=== PATIENT | male | born 1990 | race Caucasian/White ===

== ENCOUNTER 2018-08-28 11:02 | Emergency (ER) | payer BC ==
--- NOTE | 2018-08-28 11:14 | EDM.PDOC ---
ED HPI GENERAL MEDICAL PROBLEM - General Stated Complaint: LOWER BACK PAIN Time Seen by Provider: 08/28/18 11:03 Source of Information: Reports: Patient History Limitations: Reports: No Limitations - History of Present Illness INITIAL COMMENTS - FREE TEXT/NARRATIVE: HISTORY AND PHYSICAL: History of present illness: Patient is a 28-year-old male presents to the ED today with concern of right flank pain 2 days. Patient states he has a history of kidney stones and that his symptoms today resemble when he had kidney stones in the past. He rates his pain a 4 out of 10 states that times the pain is worse. He describes the pain currently as dull and achy. Patient has not taken anything [id number] for his symptoms. Patient denies fever, chills, chest pain, shortness of breath, or cough. Denies headache. Denies nausea, vomiting, diarrhea, constipation, or dysuria. Has not noted any blood in urine or stool. Patient expresses a decrease in appetite. Patient denies any other health history other than stated above. Review of systems: As per history of present illness and below otherwise all systems reviewed and negative. Past medical history: As per history of present illness and as reviewed below otherwise noncontributory. Surgical history: As per history of present illness and as reviewed below otherwise noncontributory. Social history: See social history for further information Family history: As per history of present illness and as reviewed below otherwise noncontributory. Physical exam: General: Patient is alert, oriented, and in no acute distress. He sitting comfortably on exam table. HEENT: Atraumatic, normocephalic, pupils equal and reactive bilaterally, negative for conjunctival pallor or scleral icterus, mucous membranes dry, TMs normal bilaterally, throat clear, neck supple, nontender, trachea midline. No drooling or trismus noted. No meningeal signs. No hot potato voice noted. Lungs: Clear to auscultation, breath sounds equal bilaterally, chest nontender. Heart: S1S2, regular rate and rhythm without overt murmur Abdomen: Mild-moderate pain to palpation of the right flank area. Otherwise, soft, nondistended, nontender. Negative for masses or hepatosplenomegaly. Negative for costovertebral tenderness. Pelvis: Stable nontender. Genitourinary: Deferred. Rectal: Deferred. Skin: Intact, warm, dry. No lesions or rashes noted. Extremities/musculoskeletal: Atraumatic, negative for cords or calf pain. Neurovascular unremarkable. Neuro: Awake, alert, oriented. Cranial nerves II through XII unremarkable. Cerebellum unremarkable. Motor and sensory unremarkable throughout. Exam nonfocal. Notes: On exam, patient does have mild to moderate pain to palpation of the right flank area. Will do labs and imaging today. Abd/pelvic CT shows no acute findings in the abdomen or pelvis. Shared these results with patient.Supportive care measures were reviewed and discussed. Voices understanding and is agreeable to plan of care. Denies any further questions or concerns at this time. Diagnostics: cbc, cmp, ua, abd/pelvic ct Therapeutics: Saline, toradol, zofran Prescription: None Impression: Right flank pain, unspecified Plan: 1. You can apply ice and/or heat to affected area 15 minutes on, 15 minutes off. Alternate ibuprofen and Tylenol as directed for pain and discomfort. 2. Follow up with your primary care provider as discussed. 3. Return to the ED as needed and as discussed. Definitive disposition and diagnosis as appropriate pending reevaluation and review of above. Right Flank Pain Score (Numeric/FACES): 5 - Related Data Allergies Allergy/AdvReac Type Severity Reaction Status Date / Time No Known Allergies Allergy Verified 08/28/18 11:21 Home Meds: Home Meds . [No Known Home Meds] 10/13/14 [History] Past Medical History - Past Health History Medical/Surgical History: Denies Medical/Surgical History - Infectious Disease History Infectious Disease History: Reports: Chicken Pox Other Infectious Disease History: childhood Social & Family History - Family History Family Medical History: Noncontributory ED ROS GENERAL - Review of Systems Review Of Systems: ROS reveals no pertinent complaints other than HPI. ED EXAM,LOWER BACK PAIN/INJURY - Physical Exam Exam: See Below (see dictation) Course - Vital Signs Last Recorded V/S: Last Vital Signs Temp 36.6 C 08/28/18 11:18 Pulse 80 08/28/18 11:18 Resp 16 08/28/18 11:18 BP 125/43 L 08/28/18 11:18 Pulse Ox 98 08/28/18 11:18 - Orders/Labs/Meds Labs: Laboratory Tests 08/28/18 08/28/18 08/28/18 Range/Units 11:36 11:45 11:45 WBC 6.38 (4.0-11.0) K/uL RBC 4.88 (4.50-5.90) M/uL Hgb 14.7 (13.0-17.0) g/dL Hct 42.5 (38.0-50.0) % MCV 87.1 (80.0-98.0) fL MCH 30.1 (27.0-32.0) pg MCHC 34.6 (31.0-37.0) g/dL RDW Std Deviation 40.3 (28.0-62.0) fl RDW Coeff of Luis 13 (11.0-15.0) % Plt Count 253 (150-400) K/uL MPV 8.90 (7.40-12.00) fL Neut % (Auto) 46.7 L (48.0-80.0) % Lymph % (Auto) 43.7 H (16.0-40.0) % [place] % (Auto) 7.4 (0.0-15.0) % Eos % (Auto) 1.9 (0.0-7.0) % Baso % (Auto) 0.3 (0.0-1.5) % Neut # (Auto) 3.0 (1.4-5.7) K/uL Lymph # (Auto) 2.8 H (0.6-2.4) K/uL [place] # (Auto) 0.5 (0.0-0.8) K/uL Eos # (Auto) 0.1 (0.0-0.7) K/uL Baso # (Auto) 0.0 (0.0-0.1) K/uL Nucleated RBC % 0.0 /100WBC Nucleated RBCs # 0 K/uL Sodium 140 (136-148) mmol/L Potassium 4.4 (3.5-5.1) mmol/L Chloride 105 (98-107) mmol/L Carbon Dioxide 26.0 (21.0-32.0) mmol/L BUN 14 (7.0-18.0) mg/dL Creatinine 0.9 (0.8-1.3) mg/dL Est Cr Clr Drug Dosing 102.32 mL/min Estimated GFR (MDRD) > 60.0 ml/min Glucose 87 (74-106) mg/dL Calcium 8.8 (8.5-10.1) mg/dL Total Bilirubin 0.3 (0.2-1.0) mg/dL AST 26 (15-37) IU/L ALT 34 (14-63) IU/L Alkaline Phosphatase 62 (46-116) U/L Total Protein 7.9 (6.4-8.2) g/dL Albumin 4.1 (3.4-5.0) g/dL Globulin 3.8 (2.6-4.0) g/dL Albumin/Globulin Ratio 1.1 (0.9-1.6) Urine Color YELLOW Urine Appearance CLEAR Urine pH 7.0 (5.0-8.0) Ur Specific [place] 1.020 (1.001-1.035) Urine Protein NEGATIVE (NEGATIVE) mg/dL Urine Glucose (UA) NEGATIVE (NEGATIVE) mg/dL Urine Ketones NEGATIVE (NEGATIVE) mg/dL Urine Occult Blood NEGATIVE (NEGATIVE) Urine Nitrite NEGATIVE (NEGATIVE) Urine Bilirubin NEGATIVE (NEGATIVE) Urine Urobilinogen 0.2 (<2.0) EU/dL Ur Leukocyte Esterase NEGATIVE (NEGATIVE) Meds: Medications Discontinued Medications Generic Name Dose Route Start Last Admin Trade Name Freq PRN Reason Stop Dose Admin Sodium Chloride 1,000 mls @ 999 mls/hr 08/28/18 11:34 08/28/18 11:46 Normal Saline IV 08/28/18 12:34 999 mls/hr STAT ONE Administration Ketorolac Tromethamine 30 mg 08/28/18 11:34 08/28/18 11:48 Toradol IVPUSH 08/28/18 11:35 30 mg ONETIME ONE Administration Ondansetron HCl 4 mg 08/28/18 11:34 08/28/18 11:47 Zofran IVPUSH 08/28/18 11:35 4 mg ONETIME ONE Administration Departure - Departure Time of Disposition: 12:46 Disposition: Home, Self-Care 01 Clinical Impression: Flank pain - Discharge Information Referrals: PCP,None [Primary Care Provider] - Additional Instructions: The following information is given to patients seen in the emergency department who are being discharged to home. This information is to outline your options for follow-up care. We provide all patients seen in our emergency department with a follow-up referral. The need for follow-up, as well as the timing and circumstances, are variable depending upon the specifics of your emergency department visit. If you don't have a primary care physician on staff, we will provide you with a referral. We always advise you to contact your personal physician following an emergency department visit to inform them of the circumstance of the visit and for follow-up with them and/or the need for any referrals to a consulting specialist. The emergency department will also refer you to a specialist when appropriate. This referral assures that you have the opportunity for follow-up care with a specialist. All of these measure are taken in an effort to provide you with optimal care, which includes your follow-up. Under all circumstances we always encourage you to contact your private physician who remains a resource for coordinating your care. When calling for follow-up care, please make the office aware that this follow-up is from your recent emergency room visit. If for any reason you are refused follow-up, please contact the [facility] Emergency Department at and asked to speak to the emergency department charge nurse. [facility] [address] [place] [id number] [place] [address] 1. You can apply ice and/or heat to affected area 15 minutes on, 15 minutes off. Alternate ibuprofen and Tylenol as directed for pain and discomfort. 2. Follow up with your primary care provider as discussed. 3. Return to the ED as needed and as discussed.
[2018-08-28] MEDS ORDERED: Ondansetron 4 MG/2 ML SDV IVPUSH ONE (11:34)
[2018-08-28] MEDS ORDERED: Sodium Chloride 0.9% 1,000 ML IV ONE (11:34)
[2018-08-28] MEDS ORDERED: Ketorolac 30 MG/ML SDV IVPUSH ONE (11:34)
--- NOTE | 2018-08-28 12:12 | CT ---
CT of the abdomen and pelvis without contrast. HISTORY: Right flank pain TECHNIQUE: Axial CT images were obtained of the abdomen and pelvis without contrast. Coronal and sagittal reconstructions obtained. FINDINGS: The lung bases are clear, no pleural effusion. The liver, spleen, and pancreas appear unremarkable for noncontrast examination. The gallbladder appears normal. Probable tiny right adrenal adenoma. There is no bulky retroperitoneal lymphadenopathy. No abdominal ascites. There are no calcifications noted within the kidneys or along the courses of the ureters bilaterally. Right renal cyst is noted. The large and small bowel are normal in caliber without evidence of obstruction. The appendix appears normal. There is no bulky pelvic lymphadenopathy. No free fluid. No free air. The urinary bladder appears normal. The visualized osseous structures appear normal. IMPRESSION: No acute findings within the abdomen or pelvis.
[2018-08-28 12:41] LABS: CHLORIDE,CL 105 mmol/L (98-107); SODIUM,NA 140 mmol/L (136-148)
[2018-08-28 12:58] VITALS: BP 125/76
== END 2018-08-28 12:58 | disposition home or self-care (01) ==
LOC: MW.ED 11:02
DX: R10.9 Unspecified abdominal pain (principal)
CPT/HCPCS: 36415; 74176; 80053; 81003; 85025; 96361; 96374; 96375; 99284; J1885; J2405; J7040

== ENCOUNTER 2018-11-11 13:44 | Emergency (ER) | payer BC ==
--- NOTE | 2018-11-11 13:54 | EDM.PDOC ---
ED HPI GENERAL MEDICAL PROBLEM - General Chief Complaint: ENT Problem Stated Complaint: EAR AND THROAT PAIN Time Seen by Provider: 11/11/18 13:54 Source of Information: Reports: Patient History Limitations: Reports: No Limitations - History of Present Illness INITIAL COMMENTS - FREE TEXT/NARRATIVE: HISTORY AND PHYSICAL: History of present illness: Patient is a 28-year-old male who presents to the emergency room with complaints of throat pain and left ear pain. He reports that he has been having recurrent tonsillitis and pharyngitis. He reports approximately one month ago he finished antibiotics for strep throat. He does have a referral to the ENT specialist in December with hopes he will have a tonsillectomy. Patient denies any fever, chills, headache, change in vision, syncope or near syncope. Denies any chest pain, back pain, shortness of breath or cough. Denies any GI or symptoms. Patient has been eating and drinking appropriately. Review of systems: As per history of present illness and below otherwise all systems reviewed and negative. Past medical history: As per history of present illness and as reviewed below otherwise noncontributory. Surgical history: As per history of present illness and as reviewed below otherwise noncontributory. Social history: See social history for further information Family history: As per history of present illness and as reviewed below otherwise noncontributory. Physical exam: General: Well-developed and well-nourished 28-year-old male. Alert and oriented. Nontoxic appearing and in no acute distress. HEENT: Atraumatic, normocephalic, pupils equal and reactive bilaterally, negative for conjunctival pallor or scleral icterus, mucous membranes moist, TMs normal bilaterally, throat erythematous with exudate patches bilaterally ( no fullness or pilar shifting), neck supple, mild tenderness with palpation bilaterally, trachea midline. No drooling or trismus noted. No meningeal signs. No hot potato voice noted. Lungs: Clear to auscultation, breath sounds equal bilaterally, chest nontender. Heart: S1S2, regular rate and rhythm without overt murmur Abdomen: Soft, nondistended, nontender. Negative for masses or hepatosplenomegaly. Negative for costovertebral tenderness. Pelvis: Stable nontender. Genitourinary: Deferred. Rectal: Deferred. Skin: Intact, warm, dry. No lesions or rashes noted. Extremities: Atraumatic, moves all extremities per self without difficulty or deficits, negative for cords or calf pain. Neurovascular unremarkable. Neuro: Awake, alert, oriented. Cranial nerves II through XII unremarkable. Cerebellum unremarkable. Motor and sensory unremarkable throughout. Exam nonfocal. Notes: Medications reviewed with the patient. I encouraged him to contact the ENT to inquire about expediting his consultations/appointment. Supportive care measures were reviewed and discussed. Voices understanding and is agreeable to plan of care. Denies any further questions or concerns at this time. Diagnostics: None Therapeutics: None Prescription: Pen VK Phenergan w/ Codeine (4oz) Medrol Dosepak Impression: Pharyngitis Plan: 1. Take your medication as directed. 2. Warm Salt water gargles (rinse and spit) 3-4 x daily. Please get a new tooth brush after completion of your medication 3. Tylenol and or ibuprofen as needed for pain management. 4. Follow-up with the ENT as we discussed. Return to the ED as needed and as discussed. Definitive disposition and diagnosis as appropriate pending reevaluation and review of above. Throat Pain Score (Numeric/FACES): 8 - Related Data Allergies Allergy/AdvReac Type Severity Reaction Status Date / Time No Known Allergies Allergy Verified 11/11/18 13:51 Home Meds: Home Meds . [No Known Home Meds] 10/13/14 [History] Past Medical History - Past Health History Medical/Surgical History: Denies Medical/Surgical History Genitourinary History: Reports: Renal Calculus - Infectious Disease History Infectious Disease History: Reports: Chicken Pox Other Infectious Disease History: childhood - Past Surgical History Male Surgical History: Reports: Kidney Stone Extraction Social & Family History - Family History Family Medical History: Noncontributory - Caffeine Use Caffeine Use: Reports: Coffee ED ROS ENT - Review of Systems Review Of Systems: ROS reveals no pertinent complaints other than HPI. ED EXAM, ENT - Physical Exam Exam: See Below (See dictation) Course - Vital Signs Last Recorded V/S: Last Vital Signs Temp 99.8 F 11/11/18 13:49 Pulse 108 H 11/11/18 13:49 Resp 18 11/11/18 13:49 BP 127/70 11/11/18 13:49 Pulse Ox 94 L 11/11/18 13:49 Departure - Departure Time of Disposition: 14:01 Disposition: Home, Self-Care 01 Clinical Impression: Pharyngitis Qualifiers: Pharyngitis/tonsillitis etiology: unspecified etiology Qualified Code(s): J02.9 - Acute pharyngitis, unspecified - Discharge Information Instructions: Strep Throat, [id number] Referrals: PCP,None [Primary Care Provider] - Forms: ED Department Discharge Additional Instructions: The following information is given to patients seen in the emergency department who are being discharged to home. This information is to outline your options for follow-up care. We provide all patients seen in our emergency department with a follow-up referral. The need for follow-up, as well as the timing and circumstances, are variable depending upon the specifics of your emergency department visit. If you don't have a primary care physician on staff, we will provide you with a referral. We always advise you to contact your personal physician following an emergency department visit to inform them of the circumstance of the visit and for follow-up with them and/or the need for any referrals to a consulting specialist. The emergency department will also refer you to a specialist when appropriate. This referral assures that you have the opportunity for follow-up care with a specialist. All of these measure are taken in an effort to provide you with optimal care, which includes your follow-up. Under all circumstances we always encourage you to contact your private physician who remains a resource for coordinating your care. When calling for follow-up care, please make the office aware that this follow-up is from your recent emergency room visit. If for any reason you are refused follow-up, please contact the [facility] Emergency Department at and asked to speak to the emergency department charge nurse. [facility] [address] [place] [id number] [address] 1. Take your medication as directed. 2. Warm Salt water gargles (rinse and spit) 3-4 x daily. Please get a new tooth brush after completion of your medication 3. Tylenol and or ibuprofen as needed for pain management. Phenergan with codeine for moderate to severe pain. This medication may cause drowsiness so do not take it on driving or needing to be functioning outside of the house. 4. Follow-up with the ENT as we discussed. Return to the ED as needed and as discussed.
[2018-11-11 14:34] VITALS: BP 123/78
== END 2018-11-11 14:15 | disposition home or self-care (01) ==
LOC: MW.ED 13:44
DX: J02.9 Acute pharyngitis, unspecified (principal)
CPT/HCPCS: 99282; 99283

== ENCOUNTER 2018-12-28 16:04 | Emergency (ER) | payer BC ==
--- NOTE | 2018-12-28 16:14 | EDM.PDOC ---
ED HPI GENERAL MEDICAL PROBLEM - General Chief Complaint: ENT Problem Stated Complaint: POSSBILE STREP THROAT Time Seen by Provider: 12/28/18 16:13 Source of Information: Reports: Patient History Limitations: Reports: No Limitations - History of Present Illness INITIAL COMMENTS - FREE TEXT/NARRATIVE: HISTORY AND PHYSICAL: History of present illness: Patient is a 28-year-old male presents to the ED with complaint of sore throat. He states he gets strep throat every 6-8 weeks, he is seeing ENT in [place] to consult for a tonsillectomy at the end of the month. He has had chills and nausea. Denies cough, chest pain, abdominal pain ,vomiting, trismus, difficultly swallowing or breathing. Review of systems: As per history of present illness and below otherwise all systems reviewed and negative. Past medical history: As per history of present illness and as reviewed below otherwise noncontributory. Surgical history: As per history of present illness and as reviewed below otherwise noncontributory. Social history: No reported history of drug or alcohol abuse. Family history: As per history of present illness and as reviewed below otherwise noncontributory. Physical exam: General: Patient sitting comfortably in no acute distress and nontoxic appearing HEENT: Tonsils 1+ without erythema, there is a small patch of exudate on the left tonsil. No anterior cervical LAD. Atraumatic, normocephalic, pupils reactive, negative for conjunctival pallor or scleral icterus, mucous membranes moist, neck supple, nontender, trachea midline. No meningeal signs. Lungs: Clear to auscultation, breath sounds equal bilaterally, chest nontender. Heart: S1S2, regular, negative for clicks, rubs, or overt murmur. Abdomen: Soft, nondistended, nontender. Negative for masses or hepatosplenomegaly. Negative for costovertebral tenderness. No rigidity, rebound , guarding. Pelvis: Stable nontender. Genitourinary: Deferred. Rectal: Deferred. Extremities: Atraumatic, negative for cords or calf pain. Neurovascular unremarkable. Neuro: Awake, alert, oriented. Cranial nerves II through XII unremarkable. Cerebellum unremarkable. Motor and sensory unremarkable throughout. Exam nonfocal. Notes: Diagnostics: rapid strep Therapeutics: none Prescriptions: Penicillin Medrol dosepak Impression: Tonsillitis Plan: Take medication as instructed. Alternate tylenol and motrin as needed for discomfort Follow up with primary care provider Return to ED as needed as discussed Definitive disposition and diagnosis as appropriate pending reevaluation and review of above. - Related Data Allergies Allergy/AdvReac Type Severity Reaction Status Date / Time No Known Allergies Allergy Verified 11/11/18 13:51 Home Meds: Home Meds Ibuprofen 800 mg PO PRN 12/28/18 [History] Penicillin V Potassium 500 mg PO Q8HR #30 tab 12/28/18 [Rx] methylPREDNISolone [Medrol] 4 mg PO ASDIRECTED #1 tab.ds.pk 12/28/18 [Rx] Past Medical History - Past Health History Medical/Surgical History: Denies Medical/Surgical History Genitourinary History: Reports: Renal Calculus - Infectious Disease History Infectious Disease History: Reports: Chicken Pox Other Infectious Disease History: childhood - Past Surgical History Male Surgical History: Reports: Kidney Stone Extraction Social & Family History - Family History Family Medical History: Noncontributory - Caffeine Use Caffeine Use: Reports: Coffee ED ROS ENT - Review of Systems Review Of Systems: ROS reveals no pertinent complaints other than HPI. ED EXAM, ENT - Physical Exam Exam: See Below (see dictation) Course - Vital Signs Last Recorded V/S: Last Vital Signs Temp 100.1 F 12/28/18 16:13 Pulse 101 H 12/28/18 16:13 Resp 18 12/28/18 16:13 BP 122/76 12/28/18 16:13 Pulse Ox 96 12/28/18 16:13 - Orders/Labs/Meds Orders: Active Orders 24 hr Category Date Time Status STREP SCRN A RAPID W CULT CONF [RM] Stat Lab 12/28/18 16:05 Ordered Departure - Departure Time of Disposition: 16:19 Disposition: Home, Self-Care 01 Condition: Good Clinical Impression: Tonsillitis - Discharge Information Prescriptions: Penicillin V Potassium 500 mg PO Q8HR #30 tab methylPREDNISolone [Medrol] 4 mg PO ASDIRECTED #1 tab.ds.pk Referrals: Dre Trujillo MD [Primary Care Provider] - Forms: ED Department Discharge Additional Instructions: The following information is given to patients seen in the emergency department who are being discharged to home. This information is to outline your options for follow-up care. We provide all patients seen in our emergency department with a follow-up referral. The need for follow-up, as well as the timing and circumstances, are variable depending upon the specifics of your emergency department visit. If you don't have a primary care physician on staff, we will provide you with a referral. We always advise you to contact your personal physician following an emergency department visit to inform them of the circumstance of the visit and for follow-up with them and/or the need for any referrals to a consulting specialist. The emergency department will also refer you to a specialist when appropriate. This referral assures that you have the opportunity for follow-up care with a specialist. All of these measure are taken in an effort to provide you with optimal care, which includes your follow-up. Under all circumstances we always encourage you to contact your private physician who remains a resource for coordinating your care. When calling for follow-up care, please make the office aware that this follow-up is from your recent emergency room visit. If for any reason you are refused follow-up, please contact the [facility] Emergency Department at and asked to speak to the emergency department charge nurse. [facility] [address] [place] [id number] [place] [address] Take medication as instructed. Alternate tylenol and motrin as needed for discomfort Follow up with primary care provider Return to ED as needed as discussed - My Orders Last 24 Hours: My Active Orders 12/28/18 16:05 STREP SCRN A RAPID W CULT CONF [RM] Stat - Assessment/Plan Last 24 Hours: My Active Orders 12/28/18 16:05 STREP SCRN A RAPID W CULT CONF [RM] Stat
[2018-12-28 16:31] VITALS: BP 122/74; PULSE 99
== END 2018-12-28 16:31 | disposition home or self-care (01) ==
LOC: MW.ED 16:04
DX: J03.90 Acute tonsillitis, unspecified (principal)
CPT/HCPCS: 87081; 87880-QW; 99283

== ENCOUNTER 2019-09-12 23:11 | Emergency (ER) | payer BC ==
[2019-09-12] MEDS ORDERED: Ondansetron 4 MG/2 ML SDV IVPUSH ONE (23:34)
[2019-09-12] MEDS ORDERED: Ketorolac 30 MG/ML SDV IVPUSH ONE (23:34)
--- NOTE | 2019-09-12 23:47 | EDM.PDOC ---
ED [facility] GENERAL MEDICAL PROBLEM - General Chief Complaint: Flank Pain Stated Complaint: PAIN IN RT LEG Time Seen by Provider: 09/12/19 23:46 Source of Information: Reports: Patient History Limitations: Reports: No Limitations - History of Present Illness INITIAL COMMENTS - FREE TEXT/NARRATIVE: Patient is 29-year-old male past medical history of kidney stones presenting with chief complaint of right flank pain. Patient states he first noticed the pain on Friday. The pain went away and then suddenly worsened today. Patient had no inciting activity. Patient states the pain does not radiate. Pain feels similar to prior kidney stones. Patient reports associated nausea. Patient is taken Tylenol with little relief. Denies any urinary symptoms. Pmhx: Prior kidney stone Pshx: Ureter stent Family Hx: noncontributory Smoking history? no Etoh use? none Drug use? none In addition to that documented in the HPI above, the additional ROS was obtained : Constitutional: Denies fevers or chills Eyes: Denies vision changes ENMT: Denies sore throat CV: Denies chest pain Resp: Denies SOB GI: Per HPI : Reports urinary hesitancy MSK: Denies recent trauma Skin: Denies new rashes Neuro: Denies new numbness or tingling or weakness Endocrine: Denies unexpected weight loss Heme: Denies bleeding disorders I have reviewed the triage vital signs Const: Well nourished, well developed, appears stated age Eyes: PERRL, no conjunctival injection HENT: NCAT, Neck supple without meningismus CV: RRR, Warm, well-perfused extremities RESP: CTAB, Unlabored respiratory effort GI: soft, non-tender, non-distended, no masses MSK: No gross deformities appreciated. No CVA tenderness Skin: Warm, dry. 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 Sensation and motor function of extremities grossly intact. Psych: Appropriate mood and affect Assessment and plan: Patient is 29-year-old male presenting with right flank pain. Patient hemodynamically stable in the emergency department. Patient had unremarkable ER course and pain was controlled with Toradol. Patient labs and CT reviewed. Patient had a 2 mm kidney stone noted at the right UVJ which is likely cause of the patient's pain. Patient did have some associated hydroureter but has normal kidney function. Patient was positive for leukocyte esterase on urinalysis and therefore patient will be started on Bactrim for antibiotics. Given patient's pain is controlled, the kidney stone is small and patient has normal renal function the patient be discharged home with pain medication and antibiotics. Patient given instructions for kidney stones. All questions addressed and answered. Patient agrees with plan. Right Leg Pain Score (Numeric/FACES): 10 - Related Data Allergies Allergy/AdvReac Type Severity Reaction Status Date / Time No Known Allergies Allergy Verified 11/11/18 13:51 Home Meds: Home Meds Ibuprofen 800 mg PO PRN 12/28/18 [History] Penicillin V Potassium 500 mg PO Q8HR #30 tab 12/28/18 [Rx] methylPREDNISolone [Medrol] 4 mg PO ASDIRECTED #1 tab.ds.pk 12/28/18 [Rx] Sulfamethoxazole/Trimethoprim [Bactrim Ds Tablet] 1 each PO BID #13 tablet 09/12 [Rx] Past Medical History - Past Health History Medical/Surgical History: Denies Medical/Surgical History Genitourinary History: Reports: Renal Calculus - Infectious Disease History Infectious Disease History: Reports: Chicken Pox Other Infectious Disease History: childhood - Past Surgical History Male Surgical History: Reports: Kidney Stone Extraction Social & Family History - Family History Family Medical History: Noncontributory - Caffeine Use Caffeine Use: Reports: Coffee ED ROS GENERAL - Review of Systems Review Of Systems: See Below ED EXAM, RENAL/ - Physical Exam Exam: See Below Course - Vital Signs Last Recorded V/S: Last Vital Signs Temp 36.4 C 09/12/19 23:15 Pulse 60 09/13/19 00:21 Resp 14 09/13/19 00:21 BP 139/89 09/13/19 00:21 Pulse Ox 96 09/13/19 00:21 - Orders/Labs/Meds Orders: Active Orders 24 hr Category Date Time Status CULTURE URINE [RM] Stat Lab 09/12/19 23:30 Received Labs: Laboratory Tests 09/12/19 09/12/19 09/12/19 Range/Units 23:30 23:50 23:50 WBC 8.56 (4.0-11.0) K/uL RBC 4.59 (4.50-5.90) M/uL Hgb 13.8 (13.0-17.0) g/dL Hct 41.0 (38.0-50.0) % MCV 89.3 (80.0-98.0) fL MCH 30.1 (27.0-32.0) pg MCHC 33.7 (31.0-37.0) g/dL RDW Std Deviation 42.2 (28.0-62.0) fl RDW Coeff of Luis 13 (11.0-15.0) % Plt Count 260 (150-400) K/uL MPV 8.90 (7.40-12.00) fL Add Manual Diff YES Neutrophils % (Manual) 39 L (48.0-80.0) % Lymphocytes % (Manual) 48 H (16.0-40.0) % Monocytes % (Manual) 9 (0.0-15.0) % Eosinophils % (Manual) 3 (0.0-7.0) % Basophils % (Manual) 1 (0.0-1.5) % Nucleated RBC % 0.0 /100WBC Absolute Seg Neuts 3.3 (1.4-5.7) Lymphocytes # (Manual) 4.1 H (0.6-2.4) Monocytes # (Manual) 0.8 (0.0-0.8) Eosinophils # (Manual) 0.3 (0.0-0.7) Basophils # (Manual) 0.1 (0.0-0.1) Nucleated RBCs # 0 K/uL Sodium 140 (136-148) mmol/L Potassium 3.7 (3.5-5.1) mmol/L Chloride 103 (98-107) mmol/L Carbon Dioxide 25.3 (21.0-32.0) mmol/L BUN 13 (7.0-18.0) mg/dL Creatinine 1.0 (0.8-1.3) mg/dL Est Cr Clr Drug Dosing 94.81 mL/min Estimated GFR (MDRD) > 60.0 ml/min Glucose 98 (74-106) mg/dL Calcium 8.1 L (8.5-10.1) mg/dL Total Bilirubin 0.3 (0.2-1.0) mg/dL AST 21 (15-37) IU/L ALT 26 (14-63) IU/L Alkaline Phosphatase 59 (46-116) U/L Total Protein 6.8 (6.4-8.2) g/dL Albumin 3.8 (3.4-5.0) g/dL Globulin 3.0 (2.6-4.0) g/dL Albumin/Globulin Ratio 1.3 (0.9-1.6) Urine Color YELLOW Urine Appearance CLOUDY Urine pH 6.0 (5.0-8.0) Ur Specific [place] >= 1.030 (1.001-1.035) Urine Protein 30 H (NEGATIVE) mg/dL Urine Glucose (UA) NEGATIVE (NEGATIVE) mg/dL Urine Ketones NEGATIVE (NEGATIVE) mg/dL Urine Occult Blood LARGE H (NEGATIVE) Urine Nitrite NEGATIVE (NEGATIVE) Urine Bilirubin NEGATIVE (NEGATIVE) Urine Urobilinogen 0.2 (<2.0) EU/dL Ur Leukocyte Esterase TRACE H (NEGATIVE) Urine RBC 90-100 (0-2/HPF) Urine WBC 1-3 (0-5/HPF) Ur Epithelial Cells RARE (NONE-FEW) Urine Bacteria RARE (NEGATIVE) Urine Mucus LIGHT (NONE-MOD) Meds: Medications Discontinued Medications Generic Name Dose Route Start Last Admin Trade Name Duncanq PRN Reason Stop Dose Admin Ketorolac Tromethamine 15 mg 09/12/19 23:34 09/12/19 23:40 Toradol IVPUSH 09/12/19 23:35 15 mg ONETIME ONE Administration Ondansetron HCl 4 mg 09/12/19 23:34 09/12/19 23:42 Zofran IVPUSH 09/12/19 23:35 4 mg ONETIME ONE Administration Trimethoprim/Sulfamethoxazole 1 tab 09/13/19 00:43 Septra Ds PO 09/13/19 00:44 ONETIME ONE Departure - Departure Time of Disposition: 00:56 Disposition: Home, Self-Care 01 Clinical Impression: Ureteric colic - Discharge Information Prescriptions: Sulfamethoxazole/Trimethoprim [Bactrim Ds Tablet] 1 each PO BID #13 tablet Instructions: Kidney Stones, [id number] Referrals: Dre Trujillo MD [Primary Care Provider] - Forms: ED Department Discharge Sepsis Event Note - Evaluation Sepsis Screening Result: No Definite Risk - Focused Exam Vital Signs: Vital Signs Temp Pulse Resp BP Pulse Ox 09/13/19 00:21 60 14 139/89 96 09/12/19 23:15 36.4 C 72 20 138/65 97 Date Exam was Performed: 09/13/19 Time Exam was Performed: 00:55 - My Orders Last 24 Hours: My Active Orders 09/12/19 23:30 CULTURE URINE [RM] Stat - Assessment/Plan Last 24 Hours: My Active Orders 09/12/19 23:30 CULTURE URINE [] Stat
[2019-09-13 00:19] LABS: BLOOD UREA NITROGEN,BUN 13 mg/dL (7.0-18.0); CARBON DIOXIDE,CO2 25.3 mmol/L (21.0-32.0); CHLORIDE,CL 103 mmol/L (98-107); GLUCOSE RANDOM 98 mg/dL (74-106); POTASSIUM,K 3.7 mmol/L (3.5-5.1); SODIUM,NA 140 mmol/L (136-148)
--- NOTE | 2019-09-13 00:19 | CT ---
INDICATION: Right flank pain with hematuria. CT ABDOMEN AND PELVIS WITHOUT CONTRAST TECHNIQUE: Multidetector CT imaging was performed through the abdomen and pelvis without intravenous or oral contrast. Coronal and sagittal reconstructions were generated. COMPARISON: 08/28/2018. FINDINGS: There is a 2mm stone in the bladder at the right UVJ with mild ureteral dilation and mild right hydronephrosis. No other urinary tract stones are noted. There is an unchanged small probable right renal cyst. Included portions of the lower chest show the lung bases to be clear. No abnormalities are demonstrated in the unenhanced liver, spleen, gallbladder, pancreas, stomach, and adrenals. Bowel loops are of normal caliber and demonstrate no wall thickening. The appendix is normal. No free fluid or free air is identified. The abdominal aorta appears normal. No abnormally enlarged lymph nodes are seen. The urinary bladder, prostate, and seminal vesicles are within normal limits. Visualized bones show no significant findings. IMPRESSION: 2mm stone at the right UVJ with mild right hydroureteronephrosis. DRAKE MOROCHO MD [employer] Dictated by: Abram Morocho MD @ 09/13/2019 00:17:29 (Electronically Signed)
[2019-09-13] MEDS ORDERED: Sulfamethoxazole/Trimethoprim 800-160 MG Tab PO ONE (00:43)
[2019-09-13 01:09] VITALS: BP 114/76; PULSE 76
== END 2019-09-13 01:15 | disposition home or self-care (01) ==
LOC: MW.ED 23:11
DX: N13.2 Hydronephrosis with renal and ureteral calculous obstruction (principal)
CPT/HCPCS: 36415; 74176; 80053; 81001; 85025; 87086; 96374; 96375; 99284; A9270; J1885; J2405; 99283